=== PATIENT | female | born 1960 | race African-American/Black ===

== ENCOUNTER 2016-09-12 18:10 | Emergency (ER) | payer OTHER ==
--- NOTE | ~2016-09-12 | CT4 ---
[facility] A Service of [facility] & [facility] RADIOLOGY TEXT RESULTS PATIENT: KARTIK ROWAN LOCATION: [facility] : 56 UNIT #: [id number] AGE: [address]: Raul Barraza MD SEX: F ORDER DR: [id number] [facility] [address] [place], [place] [address] [id number] MR#: [id number] Acc #: [id number] NAME: KARTIK ROWAN : 1960 SEX: F STUDY DATE/TIME: 09/12/2016 18:25 UNIT: [facility] ROOM: STUDY DESCRIPTION: CT Abd and Pelv Wo Cont Attending Physician: Raul Barraza M.D. Ordering Physician: Raul Barraza M.D. Primary Care Physician: Amaris Carpenter M.D. MEDICAL IMAGING REPORT This report is preliminary unless electronic signature is present EXAM Abdomen and pelvis CT, no contrast 09/12/2016 INDICATIONS A 55-year-old female with right lower quadrant pain for 3 weeks. History of kidney stones, pancreatitis and cervical cancer status post cholecystectomy. TECHNIQUE This CT exam was performed with one or more of the following radiation dose reduction techniques: automatic exposure control, adjustment of mA and/or kV according to patient size, and iterative reconstruction. Noncontrast abdomen and pelvis CT was performed and compared with 05/03/[address] abdomen: Exam markedly degraded by noncontrast technique. Included lung bases are emphysematous. There is lower lobe scarring on the right. No pericardial or pleural effusions small hiatal hernia. Aorta demonstrates atherosclerotic change. Spleen and adrenal glands are unremarkable. The gallbladder is surgically absent and the pancreas is unremarkable. Liver unremarkable. Kidneys demonstrate cortical scarring. No radiopaque stone or hydronephrosis on either side. Ureters not well visualized or assessed. There is significant streak artifact from fusion in the lumbar spine. CT Pelvis: Bladder unremarkable. No drainable fluid collection in the pelvis or free fluid. No adnexal mass. Intermittent diverticulosis. Moderate stool burden in the colon. No bowel obstruction. No focal inflammatory change of the bowel. Appendix not clearly identified. No STS. [facility] A Service of [facility] & [facility] RADIOLOGY TEXT RESULTS PATIENT: KARTIK ROWAN LOCATION: [facility] : 56 UNIT #: [id number] AGE: [address]: Raul Barraza MD SEX: F ORDER DR: secondary sign of appendicitis or inflammatory change in the right lower quadrant. Inguinal canal is unremarkable. There is no suspicious bone lesion. The patient is status post lumbar fusion spanning the L3-L5 levels. IMPRESSION 1. No clearly acute process identified. No bowel obstruction drainable fluid collection or focal area of inflammatory change. 2. Appendix not identified but no secondary sign of appendicitis or inflammatory change in the right lower quadrant. 3. Status post lumbar fusion and cholecystectomy. Small hiatal hernia. Dictated by... Renaldo Aparicio M.D. THIS IS AN ELECTRONICALLY VERIFIED REPORT Renaldo Aparicio M.D. at 09/13/2016 5:13 PM Beti TD: 09/12/2016 19:27 JOB #: [id number] MEDICAL IMAGING REPORT Page 1 of 1 COPY
[2016-09-12 17:15] LABS: BASOPHIL% 0.6 % (0-2.5); EOSINOPHIL# 0.1 X10e3 (0-0.7); EOSINOPHIL% 1.5 % (0.0-7.0); HEMATOCRIT 43.4 % (35.0-45.0); LYMPHOCYTE# 2.3 X10e3 (1.0-3.5); LYMPHOCYTE% 38.3 % (17.0-45.0); MEAN CELL VOLUME 82.3 FL (83-96); MEAN CORPUSCULAR HEMOGLOBIN 26.6 PG (28-34); MEAN CORPUSCULAR HGB CONC 32.3 g/dL (30-36); MONOCYTE# 0.6 X10e3 (0-1.0); MONOCYTE% 9.5 % (3.0-12.0); NEUTROPHIL% 50.1 % (40-75); PLATELET COUNT 247 X10e3 (140-420); RED BLOOD COUNT 5.27 X10e (3.90-5.30); RED CELL DISTRIBUTION WIDTH 17.6 % (11.0-15.5)
[2016-09-12 17:23] LABS: DIFF IND NO
[2016-09-12 17:41] LABS: ALBUMIN SERUM 4.1 g/dL (3.5-5.0); BILIRUBIN, DIRECT 0.1 mg/dL (0.0-0.2); BILIRUBIN,INDIRECT 0.6 mg/dL (0.0-0.9); BILIRUBIN,TOTAL 0.7 mg/dL (0.2-2.0); BUN/CREATININE RATIO 11.25; CALCIUM SERUM 9.2 mg/dL (8.4-10.2); CREATININE SERUM 0.8 mg/dL (0.6-1.4); GLOM FILT RATE Estimated 94.9 mL/min (>60); POTASSIUM 3.6 mmol/L (3.5-5.1); PROTEIN TOTAL SERUM 8.3 g/dL (6.0-8.3)
[~2016-09-12 18:10] MED LIST: ALBUTEROL IH; ALBUTEROL17 GM INH; ALPRAZOLAM ER1 MG PO; ALPRAZOLAM PO; AMBIEN PO; AMITIZA24 MCG PO; AMITIZA8 MCG PO; AMITRYPTYLINE PO; ASPIRINEC PO; BACTRIM DS TABL1 TAB PO; BISACODYL10 MG/SUPP PR; CELEXA; CHANTIX1 DOSE-PAC PO; CLARITIN D PO; CLARITIN-D1 TAB 12 H PO; CLONIDINE PO; COLACE; COLACE PO; CRESTOR5 MG PO; DENAVIR; DEXILANT30 MG PO; DIFLUCAN PO; DOCUSATE SODIU100 MG PO; DOXYCYCLINE PO; ED-SPAZ0.125 MG PO; ESTRACE0.5 MG PO; ESTRACE1 M1 PO; FLEXERIL PO; FLEXERIL10 MG PO; FLONASE 0.05% N16 G1; FLONASE16 GM; GABAPENTIN300 MG PO; GAS RELIEF 8080 M1 PO; HYDROCHLOROTHIA25 MG PO; HYDROCODON-ACE1 EAC4 PO; IBUPROFEN800 MG PO; KEFLEX PO; KLONOPIN1 MG PO; KLONOPIN2 MG PO; LINZESS145 MCG PO; LIPITOR PO; LIPOZENE PO; LITHIUM PO; LORTAB 10-3251 EACH PO; LORTAB 10-5001 EACH PO; LORTAB 10/500 T1 TAB PO; LORTAB 101 TAB 10/5 PO; LORTAB 7.5-5001 TAB PO; LORTAB 7.51 TAB PO; MEDROXYPROGEST2.5 MG PO; MIRALAX17 G2 PO; MOTRIN600 M1 PO; MOVANTIK25 MG; NAPRO60 GM; NAPROXEN PO; NAPROXEN SODIU550 MG PO; NEURONTIN300 MG PO; NEXIUM PO; NORCO 5/325 TAB1 TAB PO; NORVASC2.5 MG PO; PAXIL PO; PHENERGAN PO; PHENERGAN25 MG PO; PHENTERMINE PO; PREDNISONE PO; PROTONIX PO; PROVERA PO; PROZAC PO; SENNA CONCENTR8.6 MG; SENNA8.6 M2 PO; SEROQUEL; SOMA PO; SYMBICORT INH; TOPAMAX PO; TYLOX 5-500 CA1 EACH PO; TYLOX 5/500 CAP1 CAP PO; VALIUM10 MG PO; VALTREX PO; VICODIN 5/1 TAB 5/50 PO; VICODIN PO; ZANAFLEX PO; ZANAFLEX4 M1 PO; [UNRECOGNIZED DRUG - OTHER]
== END 2016-09-12 19:15 | disposition home or self-care (01) ==
LOC: CED 18:10
DX: R10.31 Right lower quadrant pain (principal); I10 Essential (primary) hypertension; F17.200 Nicotine dependence, unspecified, uncomplicated
CPT/HCPCS: 74176; 80048; 80076; 83690; 85025; 99284

== ENCOUNTER 2016-10-11 19:47 | Emergency (ER) | payer OTHER | END 2016-10-11 21:27 | disposition home or self-care (01) | LOC: SED 19:47 | DX: J44.1 Chronic obstructive pulmonary disease with (acute) exacerbation (principal); J44.0 Chronic obstructive pulmonary disease with (acute) lower respiratory infection; J20.9 Acute bronchitis, unspecified; F32.9 Major depressive disorder, single episode, unspecified; I10 Essential (primary) hypertension; F17.210 Nicotine dependence, cigarettes, uncomplicated; Z79.899 Other long term (current) drug therapy | CPT/HCPCS: 99283 ==